=== PATIENT | male | born 1965 | race Caucasian/White ===

== ENCOUNTER 2017-04-08 18:41 | Inpatient (IN) | payer OTHER, MEDICARE ==
--- NOTE | 2017-04-08 19:30 | ER Document Report ---
ED Medical Screen (RME) - General Chief Complaint: Breathing Difficulty Stated Complaint: SHORTNESS OF BREATH Time Seen by Provider: 04/08/17 19:14 Mode of Arrival: Wheelchair Information source: Patient Notes: This is a 51-year-old male with a recent diagnosis of pneumonia (1 week ago) he reports compliance with his Zithromax and Augmentin who presents with shortness of breath today. He states that this morning at about 0830 while he was pulling his cart of fishing gear, he had dyspnea on exertion. He has been short of breath since. He denies any chest pain. He does have bilateral lower extremity edema which is worse than usual for him today. He denies any fevers or chills. His primary care physician is in [place] I have greeted and performed a rapid initial assessment of this patient. A comprehensive ED assessment and evaluation of the patient, analysis of test results and completion of the medical decision making process will be conducted by additional ED providers. TRAVEL OUTSIDE OF THE [place] IN LAST 30 DAYS: No - Related Data Allergies/Adverse Reactions: aripiprazole Allergy (Verified 04/08/17 18:45) carbidopa Allergy (Verified 04/08/17 18:45) desvenlafaxine [From Pristiq] Allergy (Verified 04/08/17 18:45) enoxaparin Allergy (Verified 04/08/17 18:45) iron Allergy (Verified 04/08/17 18:45) prednisone Allergy (Verified 04/08/17 18:45) tree nut Allergy (Verified 04/08/17 18:45) valsartan Allergy (Verified 04/08/17 18:45) NEUROMUSCULAR BLOCKERS, STEROIDAL Allergy (Uncoded 04/08/17 18:45) Past Medical History - Social History Chew tobacco use (# tins/day): No Frequency of alcohol use: None Drug Abuse: None - Past Medical History Cardiac Medical History: Reports: Hx Hypercholesterolemia, Hx Hypertension Renal/ Medical History: Denies: Hx Peritoneal Dialysis GI Medical History: Reports: Hx Gastroesophageal Reflux Disease Psychiatric Medical History: Reports: Hx Bipolar Disorder - ptsd, Hx Depression - anxiety Past Surgical History: Reports: Hx Cholecystectomy, Hx Orthopedic Surgery - bilateral should & wrist, Hx Tonsillectomy - Immunizations Hx Diphtheria, Pertussis, Tetanus Vaccination: Yes Physical Exam - Vital signs Vitals: Temp Pulse Resp BP Pulse Ox 98.3 F 90 20 138/82 H 97 04/08/17 18:45 04/08/17 18:45 04/08/17 18:45 04/08/17 18:45 04/08/17 18:45 - General General appearance: Appears well In distress: None Course - Vital Signs Vital signs: Temp Pulse Resp BP Pulse Ox 98.3 F 90 15 138/82 H 97 04/08/17 18:45 04/08/17 18:45 04/08/17 19:08 04/08/17 18:45 04/08/17 18:45
--- NOTE | 2017-04-08 20:14 | ER Document Report ---
ED General - General Mode of Arrival: Wheelchair TRAVEL OUTSIDE OF THE [place] IN LAST 30 DAYS: No <MICHAEL COPELAND - Last Filed: 04/09/17 05:49> <KERRY ALCALA - Last Filed: 04/18/17 09:20> - General Chief Complaint: Breathing Difficulty Stated Complaint: SHORTNESS OF BREATH Time Seen by Provider: 04/08/17 19:14 Notes: Patient is a 51-year-old male that comes emergency department for chief complaint of shortness of breath and weakness. He states that symptoms started earlier today while he was pulling a cart and since that time he feels like he cannot completely catch his breath and it is worse with exertion. He does have bilateral lower extremity swelling but this is normal for him, he takes Lasix for this, he denies history of CHF. He was diagnosed with pneumonia 1 week ago , he has been compliant with his azithromycin. Past medical history of hypertension, hyperlipidemia, migraines, denies smoking, denies hx of [place]. He is visiting here from [place], about a 3-1/[address], he denies history of blood clot. (MICHAEL COPELAND) - Related Data Allergies/Adverse Reactions: aripiprazole Allergy (Verified 04/08/17 18:45) carbidopa Allergy (Verified 04/08/17 18:45) desvenlafaxine [From Pristiq] Allergy (Verified 04/08/17 18:45) enoxaparin Allergy (Verified 04/09/17 01:36) iron Allergy (Verified 04/08/17 18:45) tree nut Allergy (Verified 04/08/17 18:45) valsartan Allergy (Verified 04/08/17 18:45) prednisone Adverse Reaction (Verified 04/09/17 01:36) Confusion NEUROMUSCULAR BLOCKERS, STEROIDAL Allergy (Uncoded 04/08/17 18:45) Past Medical History - General Information source: Patient - Social History Smoking Status: Never Smoker Chew tobacco use (# tins/day): No Frequency of alcohol use: None Drug Abuse: None Lives with: Family Family History: Reviewed & Not Pertinent Patient has suicidal ideation: No Patient has homicidal ideation: No - Past Medical History Cardiac Medical History: Reports: Hx Hypercholesterolemia, Hx Hypertension Renal/ Medical History: Denies: Hx Peritoneal Dialysis GI Medical History: Reports: Hx Gastroesophageal Reflux Disease Psychiatric Medical History: Reports: Hx Bipolar Disorder - ptsd, Hx Depression - anxiety Past Surgical History: Reports: Hx Cholecystectomy, Hx Orthopedic Surgery - bilateral should & wrist, Hx Tonsillectomy - Immunizations Hx Diphtheria, Pertussis, Tetanus Vaccination: Yes <MICHAEL COPELAND - Last Filed: 04/09/17 05:49> Review of Systems - Review of Systems Constitutional: No symptoms reported EENT: No symptoms reported Cardiovascular: See HPI Respiratory: See HPI Gastrointestinal: No symptoms reported Genitourinary: No symptoms reported Male Genitourinary: No symptoms reported Musculoskeletal: No symptoms reported Skin: No symptoms reported Hematologic/Lymphatic: No symptoms reported Neurological/Psychological: No symptoms reported <MICHAEL COPELAND - Last Filed: 04/09/17 05:49> Physical Exam - Vital signs Interpretation: Normal - General General appearance: Alert In distress: None - Appears to be mildly uncomfortable but he does not appear to be in distress - HEENT Head: Normocephalic, Atraumatic Eyes: Normal Pupils: PERRL - Respiratory Respiratory status: No respiratory distress. No: Tachypnea Chest status: Nontender Breath sounds: Normal. No: Decreased air movement, Nonproductive cough, Wheezing, Other Chest palpation: Normal - Cardiovascular Rhythm: Regular. No: Tachycardia Heart sounds: Normal auscultation, S1 appreciated, S2 appreciated Murmur: No - Abdominal Inspection: Normal Distension: No distension Bowel sounds: Normal Tenderness: Nontender. No: Tender Organomegaly: No organomegaly - Back Back: Normal, Nontender - Extremities General upper extremity: Normal inspection, Nontender, Normal color, Normal ROM , Normal temperature General lower extremity: Other - Normal bilateral lower extremity edema, about 1 + bilaterally, normal distal neurovascular exam, normal exam of the lower extremities otherwise. No: Vince's sign - Neurological Neuro grossly intact: Yes Cognition: Normal Orientation: AAOx4 Yung Coma Scale Eye Opening: Spontaneous [place] Coma Scale Verbal: Oriented Yung Coma Scale Motor: Obeys Commands Yung Coma Scale Total: 15 Speech: Normal Motor strength normal: LUE, RUE, LLE, RLE Sensory: Normal - Psychological Associated symptoms: Normal affect, Normal mood - Skin Skin Temperature: Warm Skin Moisture: Dry Skin Color: Normal <MICHAEL COPELAND Last Filed: 04/09/17 05:49> Course - Laboratory Result Diagrams: 04/08/17 20:10 04/08/17 20:10 <MICHAEL COPELAND - Last Filed: 04/09/17 05:49> - Laboratory Result Diagrams: 04/08/17 20:10 04/08/17 20:10 <KERRY ALCALA - Last Filed: 04/18/17 09:20> - Re-evaluation Re-evalutation: EKG shows right bundle branch block, sinus rhythm, no T-wave inversions or ST segment changes in consecutive leads. No comparison EKG. Unremarkable. Very mild leukocytosis at 12.1, no fever, no tachycardia. When patient is placed down the lying flat his heart rate elevates and he becomes hypoxic. Room air patient averages 93-94%, placed on 2 L nasal cannula. Chart unremarkable, troponin is elevated at 0.8, patient is not having any chest pain. Patient with ongoing shortness of breath which he expresses to me, he does not appear to be in respiratory distress or tachypnea. Return because of elevated troponin, ongoing shortness of breath, and patient also has a family history of blood clots even though he has never had them personally. CTA performed, shows extensive pulmonary emboli. States she is allergic to Lovenox, he is unsure of the allergic response, family also unsure. Discussed with Dr. Alcala. Consultation with hematology. Discussed with hematology, Dr. Munoz, patient's uncertain allergy with Lovenox , discussed patient presentation, exam, and testing/workup. Recommends patient be treated with heparin instead, likely for several days before transition to oral medication. 04/08/[address] Eden, internal medicine, patient will be admitted to the IMCU (MICHAEL COPELAND) - Vital Signs Vital signs: Temp Pulse Resp BP Pulse Ox 98.3 F 91 21 H 148/80 H 99 04/10/17 08:21 04/10/17 08:21 04/10/17 08:21 04/10/17 08:21 04/10/17 08:21 - Laboratory Laboratory results interpreted by me: 04/08/17 04/08/17 04/08/17 20:10 20:10 20:10 WBC 12.8 H RBC 5.59 H MCV 79 L MCH 25.6 L RDW 14.7 H Absolute Neutrophils 8.8 H Sodium 136.2 L Alkaline Phosphatase 140 H Creatine Kinase 354 H CK-MB (CK-2) 7.30 H Urine Ascorbic Acid 04/08/17 04/09/17 04/09/17 20:10 00:40 00:40 WBC RBC MCV MCH RDW Absolute Neutrophils Sodium Alkaline Phosphatase Creatine Kinase 288 H CK-MB (CK-2) 7.36 H Urine Ascorbic Acid 40 H Discharge - Discharge Admitting Provider: Hospitalist Unit Admitted: IMCU <MICHAEL COPELAND - Last Filed: 04/09/17 05:49> <KERRY ALCALA - Last Filed: 04/18/17 09:20> - Discharge Clinical Impression: Shortness of breath, Hypoxia Pulmonary embolism Qualifiers: Pulmonary embolism type: other Chronicity: acute Acute cor pulmonale presence: without acute cor pulmonale Qualified Code(s): I26.99 - Other pulmonary embolism without acute cor pulmonale Condition: Stable Disposition: ADMITTED INPATIENT
[2017-04-08 20:33] LABS: ABSOLUTE EOSINOPHILS # (AUTO) 0.3 10^3/uL (0.0-0.6); ABSOLUTE LYMPHOCYTES (AUTO) 2.4 10^3/uL (0.5-4.7); ABSOLUTE MONOCYTES (AUTO) 1.3 10^3/uL (0.1-1.4); ABSOLUTE NEUT (AUTO) 8.8 10^3/uL (1.7-8.2); BASOPHILS % (AUTO) 0.4 % (0-2); EOSINOPHILS % (AUTO) 2.2 % (0-6); HEMATOCRIT 44.4 % (37.9-51.0); HEMOGLOBIN 14.3 g/dL (13.5-17.0); HGB HCT DIFFERENCE -1.5; LYMPHOCYTES % (AUTO) 18.3 % (13-45); MEAN CORPUSCULAR HEMOGLOBIN 25.6 pg (27.0-33.4); MEAN CORPUSCULAR HGB CONC 32.3 g/dL (32.0-36.0); MEAN CORPUSCULAR VOLUME 79 fl (80-97); MONOCYTES % (AUTO) 10.3 % (3-13); RED BLOOD COUNT 5.59 10^6/uL (4.35-5.55); RED CELL DISTRIBUTION WIDTH 14.7 % (11.5-14.0); SEGMENTED NEUTROPHILS % (AUTO) 68.8 % (42-78); WHITE BLOOD COUNT 12.8 10^3/uL (4.0-10.5)
--- NOTE | 2017-04-08 20:43 | RADIOLOGY REPORT (SQ) ---
EXAM DESCRIPTION: CHEST PA/LAT COMPLETED DATE/TIME: 04/08/2017 8:32 pm REASON FOR STUDY: SOB, hypoxia COMPARISON: None. EXAM PARAMETERS: NUMBER OF VIEWS: two views TECHNIQUE: Digital Frontal and Lateral radiographic views of the chest acquired. RADIATION DOSE: NA LIMITATIONS: none FINDINGS: LUNGS AND PLEURA: No opacities, masses or pneumothorax. No pleural effusion. MEDIASTINUM AND HILAR STRUCTURES: No masses or contour abnormalities. HEART AND VASCULAR STRUCTURES: Heart normal size. No evidence for failure. BONES: No acute findings. HARDWARE: None in the chest. OTHER: No other significant finding. IMPRESSION: NO SIGNIFICANT RADIOGRAPHIC FINDING IN THE CHEST. TECHNICAL DOCUMENTATION: JOB ID: [id number] [employer] All Rights Reserved
[2017-04-08 20:45] LABS: APPEARANCE,URINE CLEAR; BILIRUBIN,URINE NEGATIVE (NEGATIVE); GLUCOSE, URINE NEGATIVE (NEGATIVE); KETONES,URINE NEGATIVE (NEGATIVE); LEUKOCYTE ESTERASE,URINE NEGATIVE (NEGATIVE); NITRITE,URINE NEGATIVE (NEGATIVE); PROTEIN,URINE NEGATIVE (NEGATIVE); URINE SPECIFIC GRAVITY 1.016; UROBILINOGEN,URINE NEGATIVE mg/dL (<2.0)
[2017-04-08 20:51] LABS: ALANINE AMINOTRANSFERASE 69 U/L (21-72); ALKALINE PHOSPHATASE 140 U/L (38-126); ANION GAP 10 (5-19); ASPARTATE AMINO TRANSFERASE 48 U/L (17-59); BILIRUBIN,DIRECT 0.3 mg/dL (0.0-0.4); BILIRUBIN,TOTAL 0.4 mg/dL (0.2-1.3); BLOOD UREA NITROGEN 16 mg/dL (7-20); CALCIUM 9.2 mg/dL (8.4-10.2); CARBON DIOXIDE 24 mmol/L (22-30); CHLORIDE 102 mmol/L (98-107); CREATINE KINASE 354 U/L (55-170); CREATININE RESULT 0.79 mg/dL (0.52-1.25); GLUCOSE 98 mg/dL (75-110); POTASSIUM 4.3 mmol/L (3.6-5.0); SODIUM 136.2 mmol/L (137-145); TOTAL PROTEIN 6.9 g/dL (6.3-8.2)
[2017-04-08 21:03] LABS: CREATINE KINASE MB 7.3 ng/mL (<4.55)
[2017-04-08 21:14] LABS: TROPONIN I 0.872 ng/mL
[2017-04-08] MEDS ORDERED: ASPIRIN 81 MG TABLET, CHEWABLE PO ONE (21:17)
--- NOTE | 2017-04-08 22:05 | RADIOLOGY REPORT (SQ) ---
EXAM DESCRIPTION: CTA CHEST COMPLETED DATE/TIME: 04/08/2017 9:50 pm REASON FOR STUDY: shortness of breath, elevated troponin COMPARISON: None. TECHNIQUE: CT scan of the chest performed using helical scanning technique with dynamic intravenous contrast injection. Images reviewed with lung, soft tissue and bone windows. Reconstructed coronal and sagittal MPR images reviewed. Additional 3 dimensional post-processing performed to develop Maximal Intensity Projection images (CA P). All images stored on PACS. All CT scanners at this facility use dose modulation, iterative reconstruction, and/or weight based d osing when appropriate to reduce radiation dose to as low as reasonably achievable (ALARA). [facility]: Dose Right [facility]: CareDose [facility]: Dose Right [facility]: Teradose 4D [facility]: Taptera CONTRAST TYPE AND DOSE: contrast/concentration: Isovue 370.00 mg/ml; Total Contrast Delivered: 86.0 ml; Total Saline Delivered: 100.1 ml 86 Isovue 370- low osmolar. RENAL FUNCTION: Creatinine 0.79 RADIATION DOSE: 86.10 . LIMITATIONS: None. FINDINGS: LUNGS AND PLEURA: No masses, infiltrates, pneumothorax. No pleural effusions, calcificati ons. AORTA AND GREAT VESSELS: No aneurysm or dissection. HEART: No pericardial effusion. PULMONARY ARTERIES: There is extensive pulmonary embolic disease involving the main pulmonary branche s as well as multiple upper and lower lobe pulmonary arteries bilaterally. HILAR AND MEDIASTINAL STRUCTURES: No identified masses or abnormal nodes. HARDWARE: None in the chest. UPPER ABDOMEN: No significant findings. Limited exam. THYROID AND OTHER SOFT TISSUES: No masses. No adenopathy. BONES: No acute or significant finding. 3D MIPS: Confirm above findings. OTHER: No other significant finding. IMPRESSION: Extensive bilateral pulmonary embolic disease is noted above. No acute consolidations o r pleural effusions are identified. Other findings as noted above TECHNICAL DOCUMENTATION: JOB ID: [id number] Quality ID # [id number]: Final reports with documentation of one or more dose reduction techniques (e.g., Au tomated exposure control, adjustment of the mA and/or kV according to patient size, use of iterative reconstruction technique) 2010 [employer]- All Rights Reserved
--- NOTE | 2017-04-08 22:36 | EKG REPORT ---
SEVERITY:- ABNORMAL ECG - SINUS RHYTHM RIGHT BUNDLE BRANCH BLOCK : Confirmed by: Shannen Acharya 08-Apr-2017 22:35:39
[2017-04-08 22:43] LABS: PROTHROMBIN TIME 12.5 SEC (11.4-15.4)
[2017-04-08 22:44] LABS: PARTIAL THROMBOPLASTIN TIME 30.6 SEC (23.5-35.8)
[2017-04-08] MEDS ORDERED: HEPARIN SOD (PORCINE) 1,000 UNIT/ML 10 ML VIAL IV ONE (22:58)
[2017-04-08] MEDS ORDERED: HEPARIN SODIUM,PORCINE/D5W 250 ML IV PRN (22:58)
[2017-04-08] MEDS ORDERED: HEPARIN SOD (PORCINE) 1,000 UNIT/ML 10 ML VIAL IV PRN (22:58)
[2017-04-09 01:10] LABS: CREATINE KINASE MB 7.36 ng/mL (<4.55); TROPONIN I 0.764 ng/mL
[2017-04-09] MEDS ORDERED: HEPARIN SODIUM,PORCINE/D5W 250 ML IV PRN (01:33)
[2017-04-09] MEDS ORDERED: HEPARIN SOD (PORCINE) 1,000 UNIT/ML 10 ML VIAL IV PRN (01:33)
[2017-04-09] MEDS ORDERED: MAGNESIUM HYDROXIDE SUSP 30 ML UDCUP PO PRN (01:46)
[2017-04-09] MEDS ORDERED: ACETAMINOPHEN 325 MG TABLET PO PRN (01:46)
--- NOTE | 2017-04-09 02:09 | PDOC H&P ---
History of Present Illness Admission Date/PCP: 04/08/17 23:58 PCP LIMA Mackay Patient complains of: SOB, weak History of Present Illness: WILFRED DIGGS is a 51 year old morbidly obese male with underlying hypertension, hyperlipidemia, bipolar disorder, and with a family history, in the person of his mother, of pulmonary embolism and DVT, who presents to the emergency room for evaluation of above complaints. Patient has been discussed with emergency room nurse practitioner who evaluated the patient. Describes a less than 24 hour history of generalized weakness and shortness of breath, with shortness of breath particularly noticeable with virtually any exertion. Has chronic bilateral lower extremity swelling, nothing out of the ordinary for him, and without recent change, for which he takes Lasix. No recent immobility. No previous OH or congestive heart failure, or prior pulmonary embolus or DVT. Was placed on Augmentin and Zithromax approximately a week ago for what describes his x-ray proven pneumonia, at an urgent care center. He has had nausea but no vomiting. No chest pain, fever or chills. Has remained hemodynamically stable. No hypoxia, with patient currently on 1 L oxygen per nasal cannula. Currently resting quietly, without pain. History 5 years ago of endoscopic proven peptic ulcer disease. Has not bothered him since then. Laboratory results are listed in [facility] and are reviewed. X-ray summary results are listed below, with full report(s) reviewed. . EKG reviewed. No old EKG available for comparison Social history/personal habits: . Has children. Retired. No use of alcohol tobacco or illicit drugs. Allergies/adverse reactions are listed in [facility] and are reviewed. Uncertain reaction to Lovenox. Of note, prior to my being called, the evaluating ER nurse practitioner did speak by phone with on-call body line finisher, Dr. Hong. She agreed that patient could be treated by heparin drip. He has had no problem since the start of the drip. Home medications initially autopopulated into [facility] may not accurately reflect patient's true medications, dosages, and/or frequencies. production technologist to reconcile medications. Unfortunately, patient not certain of all medications/dosages/frequencies. REVIEW OF SYSTEMS: Constitutional: See history and present illness. Eyes: Wears glasses. ENT: No swallowing problems or complaints. Partial hearing loss. Pulmonary: See history and present illness. Cardiovascular: No current complaints, including chest pain. Gastrointestinal: See history and present illness. Skin: No current complaints, including rashes. Hematologic: Denies easy bruising. Neurologic: No current complaints, including numbness or tingling. Musculoskeletal: No current or chronic joint complaints, such as arthritis. Psychiatric: Denies anxiety or depression. Endocrine: No current complaints, including polyuria. Genitourinary: No current complaints, including dysuria. PHYSICAL EXAMINATION: 5 feet 11 inches tall. 139.3 kg. BMI 42.8 kg/m. Blood pressure 103/79. Pulse 79 and regular. 97% saturation 1 L oxygen per nasal cannula. Respirations are 14 and unlabored. Temperature 98.3. Morbidly obese otherwise well-developed male appearing approximately his stated age. Pleasant awake alert and cooperative. No obvious distress other than perhaps mildly anxious. No agitation. A rather stoic individual. and daughter are present at his side; patient approves. Skin is warm and dry. No grossly obvious evidence of rash in areas of skin examined. No subcutaneous nodules palpated. ENT: Hearing grossly normal to normal conversation. Tongue midline on protrusion pink and slightly tacky. Eyes: No scleral icterus. Pupils equal and reactive to light at 4 mm. Kevin conjunctivae. Neck is supple and nontender to gentle active range of motion and palpation. Midline trachea. No palpable thyroid nodule mass enlargement or tenderness. Lymphatic: No palpable cervical or clavicular nodes. Neck and lymphatic exams limited by patient body habitus. Psychiatric: Reasonable insight into acute and chronic medical issues. Oriented to time location and why here. Lungs: Auscultation reveals clear and equal breath sounds bilaterally. No use of accessory respiratory muscles. Cardiovascular: Heart regular rate and rhythm, without gallop murmur or rub. No carotid or abdominal aortic bruits. Very mild bilateral symmetric barely pitting calf, ankle, and pedal edema. Abdomen:soft obese nontender with positive bowel sounds. Unable to adequately evaluate abdomen for masses or organomegaly due to body habitus. Extremities: No calf tenderness to compression. Gentle manipulation of lower extremities fails to reveal any obvious evidence of injury or instability to knees hips or ankles. Neurologic: Moves upper extremities grossly normally. Patellar reflexes absent. Dorsiflexion and plantarflexion of feet 5 / 5 and symmetric. Past Medical History Cardiac Medical History: Reports: Hyperlipidema, Hypertension Denies: Congestive Heart Failure, DVT, Myocardial Infarction, Pulmonary Embolism Pulmonary Medical History: Denies: Asthma, Chronic Obstructive Pulmonary Disease (COPD), Sleep Apnea EENT Medical History: Reports: Eyes - Wears glasses, Ears - Partial hearing loss Denies: Throat Neurological Medical History: Reports: Migraine Denies: Hemorrhagic CVA, Ischemic CVA, Seizures Endocrine Medical History: Denies: Diabetes Mellitus Type 1, Diabetes Mellitus Type 2, Hyperthyroidism, Hypothyroidism Renal/ Medical History: Reports: Nephrolithiasis - History of same, Other - "Overactive bladder" GI Medical History: Reports: Gastroesophageal Reflux Disease, Peptic Ulcer Disease - History 5 years ago by upper endoscopy; no problems since then. Denies: Cirrhosis, Hepatitis Musculoskeltal Medical History: Reports: Arthritis Skin Medical History: Reports: None Psychiatric Medical History: Reports: Bipolar Disorder, Post Traumatic Stress Disorder Denies: Alcohol Dependency, Depression, General Anxiety Disorder, Substance Abuse, Tobacco Dependency Hematology: Reports: Other Infectious Medical History: Denies: Clostridium Difficile, Hepatitis B, Hepatitis C, Methicillin- Resistant Staph Aureus Past Surgical History Past Surgical History: Reports: Cholecystectomy, Orthopedic Surgery - bilateral should & wrist, Tonsillectomy Social History Information Source: Patient, Relative - , Emergency Med Personnel, [facility] Records Lives with: Spouse/Significant other Smoking Status: Never Smoker Frequency of Alcohol Use: None Drugs: None - Advance Directive Resuscitation Status: Full Code Surrogate healthcare decision maker:: Family History Parental Family History Reviewed: Yes - Father of cancer. Mother of Alzheimer's and COPD; history of PE, DVT Children Family History Reviewed: Yes - ADHD Sibling(s) Family History Reviewed.: NA Medication/Allergy Home Medications: Acamprosate Calcium 333 mg PO TID 04/09/17 Acetaminophen [Tylenol Arthritis 650 mg Tablet] 1,300 mg PO BIDP PRN 04/09/17 Armodafinil [Nuvigil] 250 mg PO DAILY 04/09/17 Aspirin/Acetaminophen/Caffeine [Excedrin Migraine Caplet] 1 each PO DAILYP PRN 04/09/17 Clonazepam [Klonopin 2 mg Tablet] 2 mg PO Q8 04/09/17 Colestipol HCl [Colestid 1 gm Tablet] 2 gm PO BID 04/09/17 Dicyclomine HCl [Bentyl 20 mg Tablet] 20 mg PO TIDP PRN 04/09/17 Duloxetine HCl [Cymbalta] 60 mg PO BID 04/09/17 Esomeprazole Magnesium [Nexium] 40 mg PO QAM 04/09/17 Fluoxetine HCl [Prozac 20 mg Capsule] 20 mg PO DAILY 04/09/17 Furosemide [Lasix 20 mg Tablet] 20 mg PO QAM 04/09/17 L. Rhamnosus GG/Inulin [Culturelle Capsule] 1 each PO DAILY 04/09/17 Lisinopril/Hydrochlorothiazide [Lisinopril-Hctz 20-12.5 mg Tab] 1 each PO DAILY 04/09/17 Loxapine Succinate [Loxapine] 10 mg PO BID 04/09/17 Metoprolol Succinate [Toprol Xl 50 mg Tab.sr] 50 mg PO DAILY 04/09/17 Simvastatin [Zocor 20 mg Tablet] 20 mg PO QHS 04/09/17 Tolterodine Tartrate [Detrol LA] 4 mg PO DAILY 04/09/17 Topiramate [Topamax] 50 mg PO DAILY 04/09/17 Apixaban [Eliquis 5 mg Tablet] 5 mg PO BID #60 tablet 04/10/17 Apixaban [Eliquis 5 mg Tablet] 10 mg PO Q12 #14 tablet 04/10/17 Allergies/Adverse Reactions: aripiprazole Allergy (Verified 04/08/17 18:45) carbidopa Allergy (Verified 04/08/17 18:45) desvenlafaxine [From Pristiq] Allergy (Verified 04/08/17 18:45) enoxaparin Allergy (Verified 04/09/17 01:36) iron Allergy (Verified 04/08/17 18:45) tree nut Allergy (Verified 04/08/17 18:45) valsartan Allergy (Verified 04/08/17 18:45) prednisone Adverse Reaction (Verified 04/09/17 01:36) Confusion NEUROMUSCULAR BLOCKERS, STEROIDAL Allergy (Uncoded 04/08/17 18:45) Physical Exam Vital Signs: Temp Pulse Resp BP Pulse Ox 98.3 F 90 12 115/74 97 04/08/17 18:45 04/08/17 18:45 04/09/17 01:21 04/09/17 01:21 04/09/17 01:21 Results Laboratory Results: 04/09/17 00:40 Magnesium 2.0 04/09/17 04/09/17 00:40 00:40 Creatine Kinase 288 H CK-MB (CK-2) 7.36 H Troponin I 0.764 Impressions: Chest X-Ray 04/08/17 19:27 IMPRESSION: NO SIGNIFICANT RADIOGRAPHIC FINDING IN THE CHEST. Chest/Abdomen CTA 04/08/17 21:19 IMPRESSION: Extensive bilateral pulmonary embolic disease is noted above. No acute consolidations or pleural effusions are identified. Other findings as noted above Assessment & Plan - Diagnosis (1) Anticoagulated Is this a current diagnosis for this admission?: YesPlan: Systemic anticoagulation recommended to patient. Patient and understand the risks of systemic anti-coagulation to include but not be limited to internal bleeding, which can take the form of GI tract and/or intracranial hemorrhage, the latter of which can result in or stroke with permanent paralysis. Patient has no absolute contraindication to systemic anticoagulation. Above discussed in lay person's terms. Patient agrees to undergo systemic anticoagulation. (2) Elevated troponin Is this a current diagnosis for this admission?: YesPlan: Likely secondary to the extensive pulmonary emboli. Will repeat. (3) Pulmonary embolism Qualifiers: Pulmonary embolism type: other Chronicity: acute Acute cor pulmonale presence: without acute cor pulmonale Qualified Code(s): I26.99 - Other pulmonary embolism without acute cor pulmonale Is this a current diagnosis for this admission?: YesPlan: I have strongly encouraged patient not to get out of bed without notifying staff , to avoid a fall with injury. Bed rest with bedside toilet. Heparin drip protocol. Hematology consult. Lower extremity venous Doppler study. Knee high SCDs for DVT prophylaxis. Impression and plans were discussed with patient and , both of whom concur. Time spent in evaluation and management of patient: 64 minutes. (4) Family history of pulmonary embolism Is this a current diagnosis for this admission?: Yes (5) Bipolar disorder Qualifiers: Active/Remission status: remission status unspecified Qualified Code (s): F31.9 - Bipolar disorder, unspecified Is this a current diagnosis for this admission?: YesPlan: Resume home medications as appropriate once these have been determined and reviewed. (6) HTN (hypertension) Qualifiers: Hypertension type: essential hypertension Qualified Code(s): I10 - Essential (primary) hypertension Is this a current diagnosis for this admission?: YesPlan: Resume home medications as appropriate once these have been determined and reviewed. - Inpatient Certification Based on my medical assessment, after consideration of the patient's comorbidities, presenting symptoms, or acuity I expect that the services needed warrant INPATIENT care.: Yes I certify that my determination is in accordance with my understanding of Medicare's requirements for reasonable and necessary INPATIENT services [42 CFR 412.3e].: Yes Medical Necessity: Need Close Monitoring Due to Risk of Patient Decompensation, Need For IV Fluids, Need For Continuous Telemetry Monitoring, Risk of Complication if Not Cared For in Hospital Post Hospital Care: D/C or Transfer Summary
--- NOTE | 2017-04-09 11:13 | EKG REPORT ---
SEVERITY:- ABNORMAL ECG - SINUS RHYTHM PROBABLE LEFT ATRIAL ABNORMALITY RIGHT BUNDLE BRANCH BLOCK : Confirmed by: Shannen Acharya 09-Apr-2017 11:11:19
[2017-04-09] MEDS ORDERED: APIXABAN 5 MG TABLET PO ONE (11:30)
[2017-04-09] MEDS: DOCUSATE SODIUM 100 MG CAPSULE PO SCH ×2 (11:35→17:42)
--- NOTE | 2017-04-09 11:46 | PDOC PROGRESS REPORT ---
Subjective Progress Note for:: 04/09/17 Subjective:: reason for f/u visit: massive PE, abnl TpIs hospital course: "WILFRED DIGGS is a 51 year old morbidly obese male with underlying hypertension, hyperlipidemia, bipolar disorder, and with a family history and the person of his mother, of pulmonary embolism and DVT, who presents to the emergency room for evaluation of above complaints. Describes a (sudden onset) less than 24 hour history of generalized weakness and shortness of breath, with shortness of breath particularly noticeable with virtually any exertion. Has chronic bilateral lower extremity swelling, nothing out of the ordinary for him, and without recent change, for which he takes Lasix. No recent immobility. No previous CT or congestive heart failure, or prior pulmonary embolus or DVT. (no recent travel; takes testosterone injections for some months now) Was placed on Augmentin and Zithromax approximately a week ago for what describes his x-ray proven pneumonia, at an urgent care center. He has had nausea but no vomiting. No chest pain, fever or chills. Has remained hemodynamically stable. No hypoxia, with patient currently on 1 L oxygen per nasal cannula. Currently resting quietly, without pain. History 5 years ago of endoscopic proven peptic ulcer disease. Has not bothered him since then." I found him sitting upright in bed with family around him in no distress and no O2 required with good hemodynamics. He denies chest pain, palpitations, cough, hemoptysis, and leg swelling. still SOA with minimal exertion, unchanged ROS: all systems reviewed, see HPI, remaining systems negative Physical Exam Vital Signs: Temp Pulse Resp BP Pulse Ox 97.8 F 86 18 117/73 97 04/09/17 07:57 04/09/17 07:57 04/09/17 07:57 04/09/17 07:57 04/09/17 07:57 Intake & Output 04/08/17 04/09/17 04/10/17 06:59 06:59 06:59 Intake Total 120 Output Total 300 Balance -180 Weight 135.4 kg General appearance: PRESENT: no acute distress, obese, well-developed, well- nourished Head exam: PRESENT: atraumatic, normocephalic Eye exam: ABSENT: conjunctival injection, scleral icterus Neck exam: PRESENT: full ROM. ABSENT: tracheal deviation Respiratory exam: PRESENT: clear to auscultation chadd. ABSENT: accessory muscle use, rhonchi, wheezes Cardiovascular exam: PRESENT: RRR. ABSENT: systolic murmur Pulses: PRESENT: normal radial pulses, normal dorsalis pedis pul GI/Abdominal exam: PRESENT: normal bowel sounds, soft. ABSENT: tenderness Extremities exam: PRESENT: other - asymmetric nonpitting edema Rt leg easily 2cm larger then the left at 10cm distal to tibial plateau Musculoskeletal exam: PRESENT: ambulatory, full ROM Neurological exam: PRESENT: alert, awake, oriented to person, oriented to place , oriented to time, oriented to situation Psychiatric exam: PRESENT: appropriate affect, normal mood Skin exam: PRESENT: warm Results Laboratory Results: 04/08/17 20:10 04/08/17 20:10 MCV 79 fl (80-97) L 04/08/17 20:10 MCH 25.6 pg (27.0-33.4) L 04/08/17 20:10 MCHC 32.3 g/dL (32.0-36.0) 04/08/17 20:10 RDW 14.7 % (11.5-14.0) H 04/08/17 20:10 Seg Neutrophils % 68.8 % (42-78) 04/08/17 20:10 Lymphocytes % 18.3 % (13-45) 04/08/17 20:10 Monocytes % 10.3 % (3-13) 04/08/17 20:10 Eosinophils % 2.2 % (0-6) 04/08/17 20:10 Basophils % 0.4 % (0-2) 04/08/17 20:10 Absolute Neutrophils 8.8 10^3/uL (1.7-8.2) H 04/08/17 20:10 Absolute Lymphocytes 2.4 10^3/uL (0.5-4.7) 04/08/17 20:10 Absolute Monocytes 1.3 10^3/uL (0.1-1.4) 04/08/17 20:10 Absolute Eosinophils 0.3 10^3/uL (0.0-0.6) 04/08/17 20:10 Absolute Basophils 0.0 10^3/uL (0.0-0.2) 04/08/17 20:10 Chloride 102 mmol/L (98-107) 04/08/17 20:10 Carbon Dioxide 24 mmol/L (22-30) 04/08/17 20:10 Anion Gap 10 (5-19) 04/08/17 20:10 Est GFR ( Amer) > 60 (>60) 04/08/17 20:10 Est GFR (Non-Af Amer) > 60 (>60) 04/08/17 20:10 Glucose 98 mg/dL (75-110) 04/08/17 20:10 Calcium 9.2 mg/dL (8.4-10.2) 04/08/17 20:10 Magnesium 2.0 mg/dL (1.6-2.3) 04/09/17 00:40 Total Bilirubin 0.4 mg/dL (0.2-1.3) 04/08/17 20:10 AST 48 U/L (17-59) 04/08/17 20:10 ALT 69 U/L (21-72) 04/08/17 20:10 Alkaline Phosphatase 140 U/L (38-126) H 04/08/17 20:10 Total Protein 6.9 g/dL (6.3-8.2) 04/08/17 20:10 Albumin 4.0 g/dL (3.5-5.0) 04/08/17 20:10 Urine Color YELLOW 04/08/17 20:10 Urine Appearance CLEAR 04/08/17 20:10 Urine pH 5.0 (5.0-9.0) 04/08/17 20:10 Ur Specific [place] 1.016 04/08/17 20:10 Urine Protein NEGATIVE mg/dL (NEGATIVE) 04/08/17 20:10 Urine Glucose (UA) NEGATIVE mg/dL (NEGATIVE) 04/08/17 20:10 Urine Ketones NEGATIVE mg/dL (NEGATIVE) 04/08/17 20:10 Urine Blood NEGATIVE (NEGATIVE) 04/08/17 20:10 Urine Nitrite NEGATIVE (NEGATIVE) 04/08/17 20:10 Ur Leukocyte Esterase NEGATIVE (NEGATIVE) 04/08/17 20:10 Urine WBC (Auto) 1 /HPF 04/08/17 20:10 04/08/17 04/08/17 04/09/17 20:10 20:10 00:40 Creatine Kinase 354 H 288 H CK-MB (CK-2) 7.30 H Troponin I 0.872 NT-Pro-B Natriuret Pep 564 04/09/17 00:40 Creatine Kinase CK-MB (CK-2) 7.36 H Troponin I 0.764 NT-Pro-B Natriuret Pep Impressions: Chest X-Ray 04/08/17 19:27 IMPRESSION: NO SIGNIFICANT RADIOGRAPHIC FINDING IN THE CHEST. Chest/Abdomen CTA 04/08/17 21:19 IMPRESSION: Extensive bilateral pulmonary embolic disease is noted above. No acute consolidations or pleural effusions are identified. Other findings as noted above Status: Image reviewed by me - agree with rads Assessment & Plan - Diagnosis (1) Pulmonary embolism Qualifiers: Pulmonary embolism type: other Chronicity: acute Acute cor pulmonale presence: without acute cor pulmonale Qualified Code(s): I26.99 - Other pulmonary embolism without acute cor pulmonale Is this a current diagnosis for this admission?: YesPlan: stable; I spent 35 minutes at the bedside with pt and family describing his condition, lab and imaging findings and treatment plans. He has elected to change to eliquis; stop heparin. send hypercoag profile. will need minimum 3months of treatment and repeat labs at that time. hold testosterone injections indefinitely, wasnt seeing any benefit anyway. (2) Elevated troponin Is this a current diagnosis for this admission?: YesPlan: stable; no chest pain; EKG shows RV strain with S1, Q3, T3 but no hypotension or hypoxia; likely troponin leak due to heavy clot burden (3) Family history of pulmonary embolism Is this a current diagnosis for this admission?: YesPlan: etiology never clearly identified, thought secondary to her age and tobacco use. will send hypercoag profile. (4) HTN (hypertension) Qualifiers: Hypertension type: essential hypertension Qualified Code(s): I10 - Essential (primary) hypertension Is this a current diagnosis for this admission?: YesPlan: continue to hold antiHTN due to heavy clot burden; titrate back in as clinically indicated - Time Time Spent with patient: 35 or more minutes Medications reviewed and adjusted accordingly: Yes Anticipated discharge: Home Within: within 24 hours
--- NOTE | 2017-04-09 12:31 | XCELERA REPORT ---
[address] [address] Lower Extremity Venous Evaluation Name: WILFRED DIGGS Age: 51 yrs Gender: Male : 1965 Patient Status: Inpatient Patient Location: [id number]\A Study Date: 04/09/2017 10:33 AM Procedure: Color flow and duplex imaging bilaterally of the veins of the lower extremities as well as the Common Femoral veins. Reason For Study: PE Ordering Physician: YAJAIRA MARTINEZ Performed By: Paulina Martinez Right Sided Venous Evaluation Normal vessel filling wall to wall, compression and augmentation as well as Colour flow down to the infrageniculate veins. Left Sided Venous Evaluation Normal vessel filling wall to wall, compression and augmentation as well as Colour flow down to the infrageniculate veins. Interpretation Summary No duplex evidence of DVT or obstruction in the bilateral lower extremities. : YAJAIRA MARTINEZ [place]
[2017-04-09] MEDS ORDERED: TOPIRAMATE 100 MG TABLET PO ONE (12:45)
[2017-04-09] MEDS ORDERED: FLUOXETINE HCL 20 MG CAPSULE PO ONE (12:45)
[2017-04-09] MEDS: CLONAZEPAM 1 MG TABLET PO SCH ×2 (14:45→22:04)
--- NOTE | 2017-04-09 17:38 | CONSULTATION REPORT E ---
Consultation Report NAME: WILFRED DIGGS : 1965 AGE: 51Y DATE: 04/09/2017 324 A TO: MICK LUKE M.D. FROM: YAJAIRA MARTINEZ M.D. Requesting Physician REASON FOR CONSULTATION: Patient referred for pulmonary embolism. HISTORY OF PRESENT ILLNESS: The patient is a 51-year-old man who tells me there has been no recent change in his lifestyle, he is presently visiting from [place], [place]. He is staying in [place] with his family. He presented in the emergency room with shortness of breath and weakness. He was found to have pulmonary embolism and was started on IV heparin. Today he is doing a lot better. PAST MEDICAL HISTORY: Includes: 1. A history of psychiatric disease, bipolar. He is on medications, and he is compliant. 2. He has a history of hyperlipidemia. 3. Hypertension. 4. He has COPD. 5. Sleep apnea. 6. Diabetes type 1 and type 2. SOCIAL HISTORY: He is . FAMILY HISTORY: His father of cancer. Mother has Alzheimer's and COPD. She also has a history of PE and DVT. He has a child who is alive and well. ALLERGIES: He has allergy to various medications includin. LOVENOX. 2. IRON ALLERGY. 3. TREE NUT ALLERGY. 4. PREDNISONE ALLERGY. REVIEW OF SYSTEMS: As dictated in the HPI. LABORATORIES: White count is 12.8, hemoglobin is 14.3, platelet count is 253,000. Serum electrolytes, liver function tests within normal limits. RADIOLOGY REPORT: CTA chest April 08, 2017: Extensive bilateral pulmonary embolic disease. IMPRESSION AND PLAN: The patient is a 51-year-old man with pulmonary embolism. He has not had a change in lifestyle recently. This appears to be unprovoked. He is on testosterone; he has been on this medication for about 6 months. I agree with switching him from heparin to Eliquis. I explained to him that with any anticoagulation there is the risk of bleeding. He is aware. He is also compliant with his oral medications, and I explained to him that compliance was important. Thrombophilia workup was sent already. I will plan on seeing him back for followup in the office next week to review the results of blood tests that might be available and for him to establish care as an outpatient. I thank you for this consultation and allowing me to be part of his care. DICTATING PHYSICIAN: MICK LUKE M.D. [id number] PHY#: [id number] ID: [id number] JOB#: [id number] ACCT: [id number] cc:MICK LUKE M.D. >
[2017-04-09] MEDS ORDERED: PROMETHAZINE HCL 25 MG TABLET PO PRN (21:11)
[2017-04-09] MEDS: DULOXETINE HCL 30 MG CAPSULE.DR PO SCH (22:00)
[2017-04-09] MEDS: TOLTERODINE TARTRATE 1 MG TABLET PO SCH (22:05)
[2017-04-09] MEDS: APIXABAN 5 MG TABLET PO SCH (22:06)
[2017-04-10] MEDS: CLONAZEPAM 1 MG TABLET PO SCH (05:45)
[2017-04-10 08:20] VITALS: BP 148/80
[2017-04-10] MEDS: APIXABAN 5 MG TABLET PO SCH (09:25)
[2017-04-10] MEDS: TOLTERODINE TARTRATE 1 MG TABLET PO SCH (09:25)
[2017-04-10] MEDS: DULOXETINE HCL 30 MG CAPSULE.DR PO SCH (09:25)
[2017-04-10] MEDS: DOCUSATE SODIUM 100 MG CAPSULE PO SCH (09:26)
[2017-04-10] MEDS ORDERED: TOPIRAMATE 100 MG TABLET PO SCH (10:00)
[2017-04-10] MEDS ORDERED: FLUOXETINE HCL 20 MG CAPSULE PO SCH (10:00)
[2017-04-10] MEDS ORDERED: LACTOBACILLUS ACIDOPHILUS 250 MG TAB PO SCH (10:00)
[2017-04-10] MEDS ORDERED: (PENDING PHARMACY ID) (Tolterodine Tartrate [Detrol La] 4 MG) PO SCH (10:00)
[2017-04-10] MEDS ORDERED: (PENDING PHARMACY ID) (L. Rhamnosus Gg/Inulin [Culturelle Capsule] 1 EACH) PO SCH (10:00)
[2017-04-10] MEDS ORDERED: ARMODAFINIL 250 MG PO SCH (10:00)
--- NOTE | 2017-04-10 10:35 | PDOC DISCHARGE SUMMARY ---
General - Admit/Disc Date/PCP Admission Date/Primary Care Provider: 04/09/17 01:37 Discharge Date: 04/10/17 - Discharge Diagnosis (1) Pulmonary embolism Is this a current diagnosis for this admission?: YesSummary: hypercoag w/u underway, f/u with hematology next Friday at 10am. eliquis 10mg bid x7d then 5mg bid until instructed otherwise. s/s of bleeding were discussed with the pt and his family, all questions asked and answered to their satisfaction, this is med they chose in treatment of his condition. (2) Elevated troponin Is this a current diagnosis for this admission?: YesSummary: 2/2 RV strain from large clot burden, evidenced by ECG changes S1, Q3, T3. (3) Family history of pulmonary embolism Is this a current diagnosis for this admission?: Yes (4) HTN (hypertension) Is this a current diagnosis for this admission?: YesSummary: resume home regimen - Additional Information Resuscitation Status: Full Code Discharge Diet: As Tolerated Discharge Activity: Activity As Tolerated Home Medications: Acamprosate Calcium 333 mg PO TID 04/09/17 Acetaminophen [Tylenol Arthritis 650 mg Tablet] 1,300 mg PO BIDP PRN 04/09/17 Armodafinil [Nuvigil] 250 mg PO DAILY 04/09/17 Aspirin/Acetaminophen/Caffeine [Excedrin Migraine Caplet] 1 each PO DAILYP PRN 04/09/17 Clonazepam [Klonopin 2 mg Tablet] 2 mg PO Q8 04/09/17 Colestipol HCl [Colestid 1 gm Tablet] 2 gm PO BID 04/09/17 Dicyclomine HCl [Bentyl 20 mg Tablet] 20 mg PO TIDP PRN 04/09/17 Duloxetine HCl [Cymbalta] 60 mg PO BID 04/09/17 Esomeprazole Magnesium [Nexium] 40 mg PO QAM 04/09/17 Fluoxetine HCl [Prozac 20 mg Capsule] 20 mg PO DAILY 04/09/17 Furosemide [Lasix 20 mg Tablet] 20 mg PO QAM 04/09/17 L. Rhamnosus GG/Inulin [Culturelle Capsule] 1 each PO DAILY 04/09/17 Lisinopril/Hydrochlorothiazide [Lisinopril-Hctz 20-12.5 mg Tab] 1 each PO DAILY 04/09/17 Loxapine Succinate [Loxapine] 10 mg PO BID 04/09/17 Metoprolol Succinate [Toprol Xl 50 mg Tab.sr] 50 mg PO DAILY 04/09/17 Simvastatin [Zocor 20 mg Tablet] 20 mg PO QHS 04/09/17 Tolterodine Tartrate [Detrol LA] 4 mg PO DAILY 04/09/17 Topiramate [Topamax] 50 mg PO DAILY 04/09/17 Apixaban [Eliquis 5 mg Tablet] 5 mg PO BID #60 tablet 04/10/17 Apixaban [Eliquis 5 mg Tablet] 10 mg PO Q12 #14 tablet 04/10/17 History of Present Illness Patient complains of: SOA History of Present Illness: WILFRED DIGGS is a 51 year old morbidly obese male with underlying hypertension, hyperlipidemia, bipolar disorder, and with a family history and the person of his mother, of pulmonary embolism and DVT, who presents to the emergency room for evaluation of above complaints. Hospital Course Hospital Course: Describes a (sudden onset) less than 24 hour history of generalized weakness and shortness of breath, with shortness of breath particularly noticeable with virtually any exertion. Has chronic bilateral lower extremity swelling, nothing out of the ordinary for him, and without recent change, for which he takes Lasix. No recent immobility. No previous SC or congestive heart failure , or prior pulmonary embolus or DVT. (no recent travel; takes testosterone injections for some months now) Was placed on Augmentin and Zithromax approximately a week ago for what describes his x-ray proven pneumonia, at an urgent care center. He has had nausea but no vomiting. No chest pain, fever or chills. Has remained hemodynamically stable. No hypoxia, with patient currently on 1 L oxygen per nasal cannula. Currently resting quietly, without pain. History 5 years ago of endoscopic proven peptic ulcer disease. Has not bothered him since then." eval in ED found extensive bilat PE with heavy clot burden but no evidence for hypoxia or hypotension so no indication for thrombolytics. he was admitted and started on heparin gtt, changed over to oral regimen next day after much discussion with he an is family they chose eliquis to continue treatment of his condition. on the day of d/c, I found him sitting upright in bed with family around him in no distress and no O2 required with good hemodynamics. He denies chest pain, palpitations, cough, hemoptysis, and leg swelling. still SOA with minimal exertion, but some better, he is stable for d/c at this time. dr shah met with he and his family and hypercoag w/u begun, results stilll pending and he is to f/u with her next week for further treatment rec's. Physical Exam Vital Signs: Temp Pulse Resp BP Pulse Ox 98.3 F 91 21 H 148/80 H 99 04/10/17 08:21 04/10/17 08:21 04/10/17 08:21 04/10/17 08:21 04/10/17 08:21 Intake & Output 04/09/17 04/10/17 04/11/17 06:59 06:59 06:59 Intake Total 120 2774 Output Total 300 2100 Balance -180 674 Weight 135.4 kg 134.2 kg General appearance: PRESENT: no acute distress, morbidly obese, well-developed, well-nourished Head exam: PRESENT: atraumatic Eye exam: PRESENT: EOMI Mouth exam: PRESENT: neck supple Neck exam: ABSENT: tracheal deviation Respiratory exam: PRESENT: clear to auscultation chadd. ABSENT: accessory muscle use Cardiovascular exam: PRESENT: RRR. ABSENT: systolic murmur Results Impressions: Chest X-Ray 04/08/17 19:27 IMPRESSION: NO SIGNIFICANT RADIOGRAPHIC FINDING IN THE CHEST. Chest/Abdomen CTA 04/08/17 21:19 IMPRESSION: Extensive bilateral pulmonary embolic disease is noted above. No acute consolidations or pleural effusions are identified. Other findings as noted above Qualifiers PATEINT BEING DISCHARGED WITH ANY OF THE FOLLOWING DIAGNOSIS?: No VTE patient discharged on overlapping Therapy?: Yes Plan Discharge Plan: d/c home with outpt f/u as noted above; return to the ED for evaluation of worsening SOA, hemoptysis, GIB, etc. Time Spent: Greater than 30 Minutes
[2017-04-10 14:02] LABS: ANTITHROMBIN III ACTIVITY 111 % (75-135); PROTEIN S FREE 116 % (57-157); PROTEIN S FUNCTIONAL 106 % (63-140); PROTEIN S TOTAL 136 % (60-150)
[2017-04-10 16:40] LABS: PROTEIN C ANTIGEN 132 % (60-150)
[2017-04-11 10:57] LABS: PROTEIN C ACTIVITY 184 % (73-180)
== END 2017-04-10 10:00 | disposition home or self-care (01) | DRG 176 ==
LOC: ER 18:41 → EH 23:58 → UNDOADMIN 23:58 → EH 04-09 01:37 → 3W 04-09 02:12
PROVIDERS: ADMIT Family Medicine; ATTEND Family Medicine
DX: I26.99 Other pulmonary embolism without acute cor pulmonale (principal); Z68.41 Body mass index [BMI] 40.0-44.9, adult; I10 Essential (primary) hypertension; E78.00 Pure hypercholesterolemia, unspecified; K21.9 Gastro-esophageal reflux disease without esophagitis; F31.9 Bipolar disorder, unspecified; F41.9 Anxiety disorder, unspecified; E66.01 Morbid (severe) obesity due to excess calories; Z87.11 Personal history of peptic ulcer disease; E78.5 Hyperlipidemia, unspecified; F43.10 Post-traumatic stress disorder, unspecified; Z80.9 Family history of malignant neoplasm, unspecified; Z84.89 Family history of other specified conditions; Z91.018 Allergy to other foods; Z82.49 Family history of ischemic heart disease and other diseases of the circulatory system; R79.89 Other specified abnormal findings of blood chemistry; Z79.01 Long term (current) use of anticoagulants; Z90.49 Acquired absence of other specified parts of digestive tract; Z88.8 Allergy status to other drugs, medicaments and biological substances
CPT/HCPCS: 36415; 71020; 71275; 80053; 81001; 81241; 82550; 82553; 83735; 83880; 84484; 85025; 85300; 85301; 85302; 85305; 85306; 85597; 85598; 85610; 85613; 85730; 85732; 86146; 86147; 86148; 86849; 93005; 93010; 93970; 99285; J1644; J3490

== ENCOUNTER 2017-04-27 21:24 | Emergency (ER) | payer OTHER, MEDICARE ==
[2017-04-27 23:29] LABS: ABSOLUTE BASOPHILS # (AUTO) 0.1 10^3/uL (0.0-0.2); ABSOLUTE EOSINOPHILS # (AUTO) 0.3 10^3/uL (0.0-0.6); ABSOLUTE LYMPHOCYTES (AUTO) 2.7 10^3/uL (0.5-4.7); ABSOLUTE MONOCYTES (AUTO) 1.1 10^3/uL (0.1-1.4); ABSOLUTE NEUT (AUTO) 6.8 10^3/uL (1.7-8.2); BASOPHILS % (AUTO) 1.1 % (0-2); EOSINOPHILS % (AUTO) 2.5 % (0-6); HEMATOCRIT 48.5 % (37.9-51.0); HEMOGLOBIN 16.1 g/dL (13.5-17.0); HGB HCT DIFFERENCE -0.2; LYMPHOCYTES % (AUTO) 24.5 % (13-45); MEAN CORPUSCULAR HEMOGLOBIN 26.5 pg (27.0-33.4); MEAN CORPUSCULAR HGB CONC 33.3 g/dL (32.0-36.0); MEAN CORPUSCULAR VOLUME 80 fl (80-97); MONOCYTES % (AUTO) 10.3 % (3-13); RED BLOOD COUNT 6.09 10^6/uL (4.35-5.55); RED CELL DISTRIBUTION WIDTH 15.8 % (11.5-14.0); SEGMENTED NEUTROPHILS % (AUTO) 61.6 % (42-78); WHITE BLOOD COUNT 11.1 10^3/uL (4.0-10.5)
[2017-04-27 23:36] LABS: PROTHROMBIN TIME 13.2 SEC (11.4-15.4)
[2017-04-27 23:45] LABS: ALANINE AMINOTRANSFERASE 60 U/L (21-72); ALBUMIN 4.8 g/dL (3.5-5.0); ALKALINE PHOSPHATASE 145 U/L (38-126); ASPARTATE AMINO TRANSFERASE 42 U/L (17-59); BILIRUBIN,DIRECT 0.3 mg/dL (0.0-0.4); BILIRUBIN,TOTAL 0.6 mg/dL (0.2-1.3); BLOOD UREA NITROGEN 16 mg/dL (7-20); CALCIUM 10.2 mg/dL (8.4-10.2); CARBON DIOXIDE 25 mmol/L (22-30); CHLORIDE 99 mmol/L (98-107); GLUCOSE 92 mg/dL (75-110); POTASSIUM 4.2 mmol/L (3.6-5.0); TOTAL PROTEIN 7.9 g/dL (6.3-8.2)
[2017-04-27 23:51] LABS: ANION GAP 14 (5-19); SODIUM 137.8 mmol/L (137-145)
[2017-04-28] MEDS ORDERED: HYDROCODONE/ACETAMINOPHEN 5-325 MG TABLET PO ONE (01:12)
[2017-04-28] MEDS ORDERED: LIDOCAINE 1% INJ-PF (10 MG/ML) 30 ML SDV INJ ONE (01:12)
[2017-04-28] MEDS ORDERED: CEFTRIAXONE INJ 1000 MG VIAL IM ONE (01:12)
--- NOTE | 2017-04-28 01:49 | ER Document Report ---
ED General - General Chief Complaint: Rectal Bleeding Stated Complaint: EAR PAIN,RECTAL BLEEDING Time Seen by Provider: 04/28/17 00:55 Notes: Patient is a 51 year old male that comes to the ED for chief complaint of pain in both ears, much more in his right, worse over the past 2 days. He has had trouble with ear infections in the past, completed antibiotics for this within the past 2 months but cannot remember the name. The antibiotics did work. He denies headache, fever, vomiting, dizziness. He also states that he has had some rectal bleeding, states that he noticed this while wiping, states that the remainder of his bowel movement looked normal. He states that he just wants the area checked, he has had a internal hemorrhoid for a long time. He is on Eliquis. TRAVEL OUTSIDE OF THE [place] IN LAST 30 DAYS: No - Related Data Allergies/Adverse Reactions: aripiprazole Allergy (Verified 04/28/17 03:47) carbidopa Allergy (Verified 04/28/17 03:47) desvenlafaxine [From Pristiq] Allergy (Verified 04/28/17 03:47) enoxaparin Allergy (Verified 04/28/17 03:47) iron Allergy (Verified 04/28/17 03:47) tree nut Allergy (Verified 04/28/17 03:47) valsartan Allergy (Verified 04/28/17 03:47) prednisone Adverse Reaction (Verified 04/28/17 03:47) Confusion NEUROMUSCULAR BLOCKERS, STEROIDAL Allergy (Uncoded 04/28/17 03:47) Past Medical History - General Information source: Patient - Social History Smoking Status: Never Smoker Frequency of alcohol use: None Drug Abuse: None Lives with: Family Family History: Reviewed & Not Pertinent Patient has suicidal ideation: No Patient has homicidal ideation: No - Past Medical History Cardiac Medical History: Reports: Hx Hypercholesterolemia, Hx Hypertension Denies: Hx Congestive Heart Failure, Hx DVT, Hx Heart Attack, Hx Pulmonary Embolism Pulmonary Medical History: Denies: Hx Asthma, Hx COPD, Hx Sleep Apnea Neurological Medical History: Reports: Hx Migraine. Denies: Hx Seizures Endocrine Medical History: Denies: Hx Diabetes Mellitus Type 1, Hx Diabetes Mellitus Type 2, Hx Hyperthyroidism, Hx Hypothyroidism Renal/ Medical History: Denies: Hx Peritoneal Dialysis GI Medical History: Reports: Hx Gastroesophageal Reflux Disease. Denies: Hx Cirrhosis, Hx Hepatitis Musculoskeltal Medical History: Reports Hx Arthritis Psychiatric Medical History: Reports: Hx Bipolar Disorder, Hx Post Traumatic Stress Disorder Denies: Hx Depression Infectious Medical History: Denies: Hx C-Diff, Hx Hepatitis, Hx MRSA Past Surgical History: Reports: Hx Cholecystectomy, Hx Orthopedic Surgery - bilateral should & wrist, Hx Tonsillectomy - Immunizations Hx Diphtheria, Pertussis, Tetanus Vaccination: Yes Review of Systems - Review of Systems Constitutional: No symptoms reported EENT: See HPI Cardiovascular: No symptoms reported Respiratory: No symptoms reported Gastrointestinal: See HPI Genitourinary: No symptoms reported Male Genitourinary: No symptoms reported Musculoskeletal: No symptoms reported Skin: No symptoms reported Hematologic/Lymphatic: No symptoms reported Neurological/Psychological: No symptoms reported Physical Exam - Vital signs Vitals: Temp Pulse Resp BP Pulse Ox 97.5 F 71 18 136/89 H 95 04/27/17 21:56 04/27/17 21:56 04/27/17 21:56 04/27/17 21:56 04/27/17 21:56 Interpretation: Normal - General General appearance: Alert In distress: None - Appears to be in mild pain but no distress - HEENT Head: Normocephalic, Atraumatic Eyes: Normal Conjunctiva: Normal Extraocular movements intact: Yes Eyelashes: Normal Pupils: PERRL Ears: Normal External canal: Normal Tympanic membrane: Other - TM with erythematous appearance, loss of landmarks, bulging, no rupture, no other abnormality noted. Mastoids unremarkable Sinus: Normal Nasal: Normal Mouth/Lips: Normal Mucous membranes: Normal Pharynx: Normal Neck: Normal - Respiratory Respiratory status: No respiratory distress Chest status: Nontender Breath sounds: Normal. No: Decreased air movement, Wheezing Chest palpation: Normal - Cardiovascular Rhythm: Regular Heart sounds: Normal auscultation Murmur: No - Abdominal Inspection: Normal Distension: No distension Bowel sounds: Normal Tenderness: Nontender Organomegaly: No organomegaly - Rectal Stool: No: Black, Bloody Hemorrhoids: Internal. No: External, Anal fissure, Mass - Back Back: Normal, Nontender - Extremities General upper extremity: Normal inspection, Nontender, Normal color, Normal ROM , Normal temperature General lower extremity: Normal inspection, Nontender, Normal color, Normal ROM , Normal temperature, Normal weight bearing. No: Vince's sign - Neurological Neuro grossly intact: Yes Cognition: Normal Orientation: AAOx4 [place] Coma Scale Eye Opening: Spontaneous Yung Coma Scale Verbal: Oriented Yung Coma Scale Motor: Obeys Commands [place] Coma Scale Total: 15 Speech: Normal Motor strength normal: LUE, RUE, LLE, RLE Sensory: Normal - Psychological Associated symptoms: Normal affect, Normal mood - Skin Skin Temperature: Warm Skin Moisture: Dry Skin Color: Normal Course - Re-evaluation Re-evalutation: Patient does have an internal hemorrhoid on examination, no gross bleeding, no significant tenderness to the area. 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 Nontender abdomen, no grossly bloody stools reported, just small amount with wiping. Patient does have painful appearing right otitis media, he appears uncomfortable and he states he could not sleep and came because of this reason. No other concerning abnormalities noted. Discussed treatment, follow-up, return precautions, patient and family state understanding and agreement - Vital Signs Vital signs: Temp Pulse Resp BP Pulse Ox 97.8 F 69 18 117/76 95 04/28/17 02:40 04/28/17 02:40 04/28/17 02:40 04/28/17 02:40 04/28/17 02:40 - Laboratory Result Diagrams: 04/27/17 23:00 04/27/17 23:00 Laboratory results interpreted by me: 04/27/17 04/27/17 23:00 23:00 WBC 11.1 H RBC 6.09 H MCH 26.5 L RDW 15.8 H Alkaline Phosphatase 145 H Discharge - Discharge Clinical Impression: Hematochezia Ear pain Qualifiers: Laterality: bilateral Qualified Code(s): H92.03 - Otalgia, bilateral Condition: Stable Disposition: HOME, SELF-CARE Additional Instructions: Your exam is consistent with a middle ear infection. Take the antibiotic as prescribed, follow up with your Provider. Take tylenol for pain, only take the additional pain medication if needed to sleep. If you do, take the stool softener. Follow up with your Process Area Supervisor for ongoing internal hemorrhoid. Return to the ED for any concerning symptoms. Prescriptions: Cefdinir [Omnicef 300 mg Capsule] 1 cap PO BID #20 capsule Docusate Sodium [Colace 100 mg Capsule] 100 mg PO DAILY #30 capsule Hydrocodone/Acetaminophen [[place] 5-325 mg Tablet] 1 - 2 tab PO ASDIR #10 tablet
[2017-04-28 03:47] VITALS: BP 117/76
== END 2017-04-28 02:45 | disposition home or self-care (01) ==
LOC: ER 21:24
DX: K92.1 Melena (principal); H66.91 Otitis media, unspecified, right ear; H92.03 Otalgia, bilateral; K64.8 Other hemorrhoids; I10 Essential (primary) hypertension; Z79.01 Long term (current) use of anticoagulants; Z88.8 Allergy status to other drugs, medicaments and biological substances; Z91.018 Allergy to other foods
CPT/HCPCS: 99283; 96372; 36415; 85025; 85610; 80053; J3490; J0696

== ENCOUNTER 2018-02-07 18:42 | Emergency (ER) | payer MEDICARE, OTHER ==
--- NOTE | 2018-02-07 20:08 | ER Document Report ---
ED Medical Screen (RME) - General Chief Complaint: Diarrhea Stated Complaint: FLU LIKE SYMPTOMS Time Seen by Provider: 02/07/18 20:04 Notes: This 52-year-old male patient comes emergency room complaining of onset this morning of fever, chills, dizzy sensation, and aching all over. There is minimal cough associated with this. He has diarrhea but that is a chronic problem and he takes up to 10 Imodium on a daily basis for this problem. I have greeted and performed a rapid initial assessment of this patient. A comprehensive ED assessment and evaluation of the patient, analysis of test results and completion of the medical decision making process will be conducted by additional ED providers. TRAVEL OUTSIDE OF THE [place] IN LAST 30 DAYS: No - Related Data Allergies/Adverse Reactions: aripiprazole Allergy (Verified 02/07/18 18:45) carbidopa Allergy (Verified 04/28/17 03:47) desvenlafaxine [From Pristiq] Allergy (Verified 04/28/17 03:47) enoxaparin Allergy (Verified 02/07/18 18:45) iron Allergy (Verified 04/28/17 03:47) tree nut Allergy (Verified 02/07/18 18:45) valsartan Allergy (Verified 04/28/17 03:47) prednisone Adverse Reaction (Verified 02/07/18 18:45) Confusion NEUROMUSCULAR BLOCKERS, STEROIDAL Allergy (Uncoded 04/28/17 03:47) Past Medical History - Past Medical History Cardiac Medical History: Reports: Hx Hypercholesterolemia, Hx Hypertension Denies: Hx Congestive Heart Failure, Hx DVT, Hx Heart Attack, Hx Pulmonary Embolism Pulmonary Medical History: Denies: Hx Asthma, Hx COPD, Hx Sleep Apnea Neurological Medical History: Reports: Hx Migraine. Denies: Hx Seizures Endocrine Medical History: Denies: Hx Diabetes Mellitus Type 1, Hx Diabetes Mellitus Type 2, Hx Hyperthyroidism, Hx Hypothyroidism Renal/ Medical History: Denies: Hx Peritoneal Dialysis GI Medical History: Reports: Hx Gastroesophageal Reflux Disease. Denies: Hx Cirrhosis, Hx Hepatitis Musculoskeltal Medical History: Reports Hx Arthritis Psychiatric Medical History: Reports: Hx Bipolar Disorder, Hx Post Traumatic Stress Disorder Denies: Hx Depression Infectious Medical History: Denies: Hx C-Diff, Hx Hepatitis, Hx MRSA Past Surgical History: Reports: Hx Cholecystectomy, Hx Orthopedic Surgery - bilateral should & wrist, Hx Tonsillectomy - Immunizations Hx Diphtheria, Pertussis, Tetanus Vaccination: Yes Physical Exam - Vital signs Vitals: Temp Pulse Resp BP Pulse Ox 99.0 F 99 20 165/85 H 96 02/07/18 18:52 02/07/18 18:52 02/07/18 18:52 02/07/18 18:52 02/07/18 18:52 Course - Vital Signs Vital signs: Temp Pulse Resp BP Pulse Ox 99.0 F 99 20 165/85 H 96 02/07/18 18:52 02/07/18 18:52 02/07/18 18:52 02/07/18 18:52 02/07/18 18:52
[2018-02-07] MEDS ORDERED: ACETAMINOPHEN 325 MG TABLET PO ONE (20:42)
[2018-02-07 20:43] LABS: ABSOLUTE BASOPHILS # (AUTO) 0.1 10^3/uL (0.0-0.2); ABSOLUTE EOSINOPHILS # (AUTO) 0.2 10^3/uL (0.0-0.6); ABSOLUTE LYMPHOCYTES (AUTO) 0.6 10^3/uL (0.5-4.7); ABSOLUTE MONOCYTES (AUTO) 0.7 10^3/uL (0.1-1.4); ABSOLUTE NEUT (AUTO) 4.5 10^3/uL (1.7-8.2); BASOPHILS % (AUTO) 0.9 % (0-2); EOSINOPHILS % (AUTO) 3.4 % (0-6); HEMATOCRIT 40.6 % (37.9-51.0); HEMOGLOBIN 14.1 g/dL (13.5-17.0); MEAN CORPUSCULAR HEMOGLOBIN 28.3 pg (27.0-33.4); MEAN CORPUSCULAR HGB CONC 34.7 g/dL (32.0-36.0); MEAN CORPUSCULAR VOLUME 82 fl (80-97); MONOCYTES % (AUTO) 11.3 % (3-13); PLATELET COUNT 257 10^3/uL (150-450); RED BLOOD COUNT 4.97 10^6/uL (4.35-5.55); SEGMENTED NEUTROPHILS % (AUTO) 74.4 % (42-78); TOTAL CELLS COUNTED % (AUTO) 100 %
--- NOTE | 2018-02-07 20:44 | ER Document Report ---
ED Flu Like - General Chief Complaint: Diarrhea Stated Complaint: FLU LIKE SYMPTOMS Time Seen by Provider: 02/07/18 20:04 Mode of Arrival: Ambulatory Information source: Patient Notes: Patient presents complaining of flulike symptoms. Patient states he was around someone recently with viral illness symptoms. Patient reports subjective fever today with minimal cough. Patient complains of generalized body aches and chills. Patient denies any sore throat or ear pain. Patient denies any chest pain, abdominal pain or back pain. TRAVEL OUTSIDE OF THE [place] IN LAST 30 DAYS: No - HPI Onset: This morning Timing/Duration: Persistent Quality of pain: Achy Pain Level: 4 Associated symptoms: Body/muscle aches, Chills, Nonproductive cough, Diarrhea, Fever - Subjective. denies: Chest pain, Productive cough, Nausea, Vomiting, Shortness of breath Recently seen / treated by doctor: No - Related Data Allergies/Adverse Reactions: aripiprazole Allergy (Verified 02/07/18 18:45) carbidopa Allergy (Verified 04/28/17 03:47) desvenlafaxine [From Pristiq] Allergy (Verified 04/28/17 03:47) enoxaparin Allergy (Verified 02/07/18 18:45) iron Allergy (Verified 04/28/17 03:47) tree nut Allergy (Verified 02/07/18 18:45) valsartan Allergy (Verified 04/28/17 03:47) prednisone Adverse Reaction (Verified 02/07/18 20:12) Confusion NEUROMUSCULAR BLOCKERS, STEROIDAL Allergy (Uncoded 04/28/17 03:47) Past Medical History - General Information source: Patient - Social History Smoking Status: Never Smoker Chew tobacco use (# tins/day): No Frequency of alcohol use: None Drug Abuse: None Lives with: Spouse/Significant other Family History: Reviewed & Not Pertinent Patient has suicidal ideation: No Patient has homicidal ideation: No - Past Medical History Cardiac Medical History: Reports: Hx Hypercholesterolemia, Hx Hypertension Denies: Hx Congestive Heart Failure, Hx DVT, Hx Heart Attack, Hx Pulmonary Embolism Pulmonary Medical History: Denies: Hx Asthma, Hx COPD, Hx Sleep Apnea Neurological Medical History: Reports: Hx Migraine. Denies: Hx Seizures Endocrine Medical History: Denies: Hx Diabetes Mellitus Type 1, Hx Diabetes Mellitus Type 2, Hx Hyperthyroidism, Hx Hypothyroidism Renal/ Medical History: Denies: Hx Peritoneal Dialysis GI Medical History: Reports: Hx Gastroesophageal Reflux Disease, Hx Hiatal Hernia, Other - Chronic diarrhea. Denies: Hx Cirrhosis, Hx Hepatitis Musculoskeltal Medical History: Reports Hx Arthritis Psychiatric Medical History: Reports: Hx Anxiety, Hx Bipolar Disorder, Hx Depression, Hx Post Traumatic Stress Disorder Infectious Medical History: Denies: Hx C-Diff, Hx Hepatitis, Hx MRSA Past Surgical History: Reports: Hx Cholecystectomy, Hx Orthopedic Surgery - bilateral should & wrist, Hx Tonsillectomy - Immunizations Hx Diphtheria, Pertussis, Tetanus Vaccination: Yes Review of Systems - Review of Systems Constitutional: Chills, Fever - Subjective, Malaise. denies: Recent illness EENT: No symptoms reported. denies: Throat pain Cardiovascular: Dizziness. denies: Chest pain Respiratory: Cough. denies: Short of breath Gastrointestinal: Diarrhea. denies: Abdominal pain, Nausea, Vomiting Genitourinary: No symptoms reported. denies: Dysuria Male Genitourinary: No symptoms reported Musculoskeletal: Other - Generalized body aches. denies: Back pain Skin: No symptoms reported. denies: Rash Hematologic/Lymphatic: No symptoms reported Neurological/Psychological: No symptoms reported. denies: Weakness Physical Exam - Vital signs Vitals: Temp Pulse Resp BP Pulse Ox 99.0 F 99 20 165/85 H 96 02/07/18 18:52 02/07/18 18:52 02/07/18 18:52 02/07/18 18:52 02/07/18 18:52 - General General appearance: Appears well, Alert In distress: None - HEENT Head: Normocephalic, Atraumatic Eyes: Normal Conjunctiva: Normal Ears: Normal External canal: Normal Nasal: Normal Mouth/Lips: Normal Mucous membranes: Normal Pharynx: Normal Neck: Normal, Supple. No: Lymphadenopathy, Meningismus - Respiratory Respiratory status: No respiratory distress Chest status: Nontender Breath sounds: Normal. No: Rales, Rhonchi, Stridor, Wheezing Chest palpation: Normal - Cardiovascular Rhythm: Regular Heart sounds: S1 appreciated, S2 appreciated Murmur: No - Abdominal Inspection: Morbidly Obese Distension: No distension Bowel sounds: Normal Tenderness: Nontender - Back Back: Normal. No: CVA tenderness, Vertebra tenderness - Extremities General upper extremity: Normal inspection, Normal strength General lower extremity: Edema - 1+ bilat LE, Normal strength - Neurological Neuro grossly intact: Yes Cognition: Normal Yung Coma Scale Eye Opening: Spontaneous [place]ung Coma Scale Verbal: Oriented [place] Coma Scale Motor: Obeys Commands [place] Coma Scale Total: 15 - Psychological Associated symptoms: Normal affect, Normal mood - Skin Skin Temperature: Warm Skin Moisture: Dry Skin Color: Normal Course - Re-evaluation Re-evalutation: 02/07/18 21:52 Patient nontoxic in appearance at this time. Reviewed results of diagnostic tests with patient and his significant other. Patient encouraged to follow-up with his primary doctor Friday for a recheck. Patient presents with symptoms concerning for viral illness especially given history of recent sick contact. Patient without any symptoms concerning for pneumonia, no concern for sepsis. Good return precautions given to patient. Patient agreeable with this discharge plan of care. - Vital Signs Vital signs: Temp Pulse Resp BP Pulse Ox 99.5 F 93 18 139/93 H 96 02/07/18 22:10 02/07/18 22:10 02/07/18 22:10 02/07/18 22:10 02/07/18 22:10 - Laboratory Result Diagrams: 02/07/18 20:30 02/07/18 20:30 Laboratory results interpreted by me: 02/07/18 20:30 Lymphocytes % 10.0 L Labs- Entire Visit 02/07/18 02/07/18 02/07/18 20:17 20:30 20:30 WBC 6.0 RBC 4.97 Hgb 14.1 Hct 40.6 MCV 82 MCH 28.3 MCHC 34.7 RDW 14.0 Plt Count 257 Seg Neutrophils % 74.4 Lymphocytes % 10.0 L Monocytes % 11.3 Eosinophils % 3.4 Basophils % 0.9 Absolute Neutrophils 4.5 Absolute Lymphocytes 0.6 Absolute Monocytes 0.7 Absolute Eosinophils 0.2 Absolute Basophils 0.1 Sodium 141.8 Potassium 4.4 Chloride 102 Carbon Dioxide 27 Anion Gap 13 BUN 13 Creatinine 1.02 Est GFR ( Amer) > 60 Est GFR (Non-Af Amer) > 60 Glucose 102 Calcium 9.9 Total Bilirubin 0.3 Direct Bilirubin 0.3 Neonat Total Bilirubin Not Reportable Neonat Direct Bilirubin Not Reportable Neonat Indirect Bili Not Reportable AST 34 ALT 53 Alkaline Phosphatase 102 Creatine Kinase Total Protein 7.0 Albumin 4.3 Urine Color YELLOW Urine Appearance CLEAR Urine pH 7.0 Ur Specific [place] 1.014 Urine Protein NEGATIVE Urine Glucose (UA) NEGATIVE Urine Ketones NEGATIVE Urine Blood NEGATIVE Urine Nitrite NEGATIVE Urine Bilirubin NEGATIVE Urine Urobilinogen NEGATIVE Ur Leukocyte Esterase NEGATIVE Urine WBC (Auto) 0 Urine RBC (Auto) 0 Urine Mucus (Auto) RARE Urine Ascorbic Acid NEGATIVE 02/07/18 20:30 WBC RBC Hgb Hct MCV MCH MCHC RDW Plt Count Seg Neutrophils % Lymphocytes % Monocytes % Eosinophils % Basophils % Absolute Neutrophils Absolute Lymphocytes Absolute Monocytes Absolute Eosinophils Absolute Basophils Sodium Potassium Chloride Carbon Dioxide Anion Gap BUN Creatinine Est GFR ( Amer) Est GFR (Non-Af Amer) Glucose Calcium Total Bilirubin Direct Bilirubin Neonat Total Bilirubin Neonat Direct Bilirubin Neonat Indirect Bili AST ALT Alkaline Phosphatase Creatine Kinase 163 Total Protein Albumin Urine Color Urine Appearance Urine pH Ur Specific [place] Urine Protein Urine Glucose (UA) Urine Ketones Urine Blood Urine Nitrite Urine Bilirubin Urine Urobilinogen Ur Leukocyte Esterase Urine WBC (Auto) Urine RBC (Auto) Urine Mucus (Auto) Urine Ascorbic Acid 02/07/18 21:52 Labs- Entire Visit 02/07/18 02/07/18 02/07/18 20:17 20:30 20:30 WBC 6.0 RBC 4.97 Hgb 14.1 Hct 40.6 MCV 82 MCH 28.3 MCHC 34.7 RDW 14.0 Plt Count 257 Seg Neutrophils % 74.4 Lymphocytes % 10.0 L Monocytes % 11.3 Eosinophils % 3.4 Basophils % 0.9 Absolute Neutrophils 4.5 Absolute Lymphocytes 0.6 Absolute Monocytes 0.7 Absolute Eosinophils 0.2 Absolute Basophils 0.1 Sodium 141.8 Potassium 4.4 Chloride 102 Carbon Dioxide 27 Anion Gap 13 BUN 13 Creatinine 1.02 Est GFR ( Amer) > 60 Est GFR (Non-Af Amer) > 60 Glucose 102 Calcium 9.9 Total Bilirubin 0.3 Direct Bilirubin 0.3 Neonat Total Bilirubin Not Reportable Neonat Direct Bilirubin Not Reportable Neonat Indirect Bili Not Reportable AST 34 ALT 53 Alkaline Phosphatase 102 Creatine Kinase Total Protein 7.0 Albumin 4.3 Urine Color YELLOW Urine Appearance CLEAR Urine pH 7.0 Ur Specific [place] 1.014 Urine Protein NEGATIVE Urine Glucose (UA) NEGATIVE Urine Ketones NEGATIVE Urine Blood NEGATIVE Urine Nitrite NEGATIVE Urine Bilirubin NEGATIVE Urine Urobilinogen NEGATIVE Ur Leukocyte Esterase NEGATIVE Urine WBC (Auto) 0 Urine RBC (Auto) 0 Urine Mucus (Auto) RARE Urine Ascorbic Acid NEGATIVE 02/07/18 20:30 WBC RBC Hgb Hct MCV MCH MCHC RDW Plt Count Seg Neutrophils % Lymphocytes % Monocytes % Eosinophils % Basophils % Absolute Neutrophils Absolute Lymphocytes Absolute Monocytes Absolute Eosinophils Absolute Basophils Sodium Potassium Chloride Carbon Dioxide Anion Gap BUN Creatinine Est GFR ( Amer) Est GFR (Non-Af Amer) Glucose Calcium Total Bilirubin Direct Bilirubin Neonat Total Bilirubin Neonat Direct Bilirubin Neonat Indirect Bili AST ALT Alkaline Phosphatase Creatine Kinase 163 Total Protein Albumin Urine Color Urine Appearance Urine pH Ur Specific [place] Urine Protein Urine Glucose (UA) Urine Ketones Urine Blood Urine Nitrite Urine Bilirubin Urine Urobilinogen Ur Leukocyte Esterase Urine WBC (Auto) Urine RBC (Auto) Urine Mucus (Auto) Urine Ascorbic Acid - Diagnostic Test Radiology reviewed: Reports reviewed Discharge - Discharge Clinical Impression: Myalgia, Cough Headache Qualifiers: Headache type: unspecified Headache chronicity pattern: episodic headache Intractability: not intractable Qualified Code(s): R51 - Headache Condition: Stable Disposition: HOME, SELF-CARE Instructions: Acetaminophen, Headache ([facility]), Viral Syndrome ([facility]) Additional Instructions: Return immediately for any new or worsening symptoms Followup with your primary care provider, call tomorrow to make a followup appointment You may continue to take Tylenol [id number] for any headache symptoms as well as generalized body aches Referrals: [facility] [Provider Group] - 02/09/18
[2018-02-07 20:58] LABS: APPEARANCE,URINE CLEAR; BILIRUBIN,URINE NEGATIVE (NEGATIVE); COLOR,URINE YELLOW; GLUCOSE, URINE NEGATIVE (NEGATIVE); KETONES,URINE NEGATIVE (NEGATIVE); LEUKOCYTE ESTERASE,URINE NEGATIVE (NEGATIVE); NITRITE,URINE NEGATIVE (NEGATIVE); PROTEIN,URINE NEGATIVE (NEGATIVE); URINE SPECIFIC GRAVITY 1.014; UROBILINOGEN,URINE NEGATIVE mg/dL (<2.0)
[2018-02-07 21:01] LABS: ALANINE AMINOTRANSFERASE 53 U/L (21-72); ALBUMIN 4.3 g/dL (3.5-5.0); ALKALINE PHOSPHATASE 102 U/L (38-126); ANION GAP 13 (5-19); ASPARTATE AMINO TRANSFERASE 34 U/L (17-59); BILIRUBIN,DIRECT 0.3 mg/dL (0.0-0.4); BILIRUBIN,TOTAL 0.3 mg/dL (0.2-1.3); BLOOD UREA NITROGEN 13 mg/dL (7-20); CALCIUM 9.9 mg/dL (8.4-10.2); CARBON DIOXIDE 27 mmol/L (22-30); CHLORIDE 102 mmol/L (98-107); GLUCOSE 102 mg/dL (75-110); POTASSIUM 4.4 mmol/L (3.6-5.0); SODIUM 141.8 mmol/L (137-145)
--- NOTE | 2018-02-07 21:23 | RADIOLOGY REPORT (SQ) ---
EXAM DESCRIPTION: CHEST 2 VIEWS COMPLETED DATE/TIME: 02/07/2018 9:08 pm REASON FOR STUDY: cough COMPARISON: CT angio chest 04/08/2017 Two-view chest 04/08/2017 EXAM PARAMETERS: NUMBER OF VIEWS: two views TECHNIQUE: Digital Frontal and Lateral radiographic views of the chest acquired. RADIATION DOSE: NA LIMITATIONS: none FINDINGS: LUNGS AND PLEURA: No opacities, masses or pneumothorax. No pleural effusion. MEDIASTINUM AND HILAR STRUCTURES: No masses or contour abnormalities. HEART AND VASCULAR STRUCTURES: Heart normal size. No evidence for failure. BONES: No acute findings. HARDWARE: Clips right upper quadrant post cholecystectomy OTHER: No other significant finding. IMPRESSION: NO ACUTE RADIOGRAPHIC FINDING IN THE CHEST. TECHNICAL DOCUMENTATION: JOB ID: [id number] [employer]- All Rights Reserved Reading location - IP/workstation name: [email or web address]
[2018-02-07 22:11] VITALS: BP 139/93
== END 2018-02-07 22:09 | disposition home or self-care (01) ==
LOC: ER 18:42
DX: M79.1 Myalgia (principal); R05 Cough; R51 Headache; R19.7 Diarrhea, unspecified; E78.00 Pure hypercholesterolemia, unspecified; I10 Essential (primary) hypertension; Z90.49 Acquired absence of other specified parts of digestive tract
CPT/HCPCS: 99284; 36415; 82550; 85025; 80053; 81001; 71046; A9270

== ENCOUNTER → 2018-10-13 | Outpatient (CLI) | payer MEDICARE ==
--- NOTE | 2018-10-13 16:53 | WOMENS IMAGING REPORT ---
EXAM DESCRIPTION: BILAT DIAGNOSTIC MAMMO W/CAD; U/S BREAST UNILAT LIMITED COMPLETED DATE/TIME: 10/13/2018 12:55 pm; 10/13/2018 1:31 pm REASON FOR STUDY: N63.20 UNSPECIFIED LUMP IN THE LEFT BREAST, UNSPECIFIED QUADRANT; LEFT BREAST LUMP N63.20 N63.20 UNSPECIFIED LUMP IN THE LEFT BREAST, UNSPECIFIED QUAD COMPARISON: None. TECHNIQUE: Standard craniocaudal and mediolateral oblique views of the right and left male breast re corded using digital acquisition. Additional bilateral 90 mediolateral mammograms. Left male breast ultrasound was performed. LIMITATIONS: None. FINDINGS: RIGHT BREAST MASSES: No suspicious masses. CALCIFICATIONS: No new or suspicious calcifications. ARCHITECTURAL DISTORTION: None. DEVELOPING DENSITY: None. ASYMMETRY: None noted. OTHER: No other significant findings. LEFT BREAST MASSES: No suspicious masses. CALCIFICATIONS: No new or suspicious calcifications. ARCHITECTURAL DISTORTION: None. DEVELOPING DENSITY: None. ASYMMETRY: None noted. OTHER: Mild gynecomastia. Read with the assistance of CAD: .[facility] - R2 [employer] Worker Version 9.2 Left male breast ultrasound: Patient presents with a palpable abnormality left breast laterally at 3 o'clock position. This is se en in the area indicated by the patient, a benign-appearing hypoechoic 6 x 5 mm lymph node is present . Normal cortical thickness. No worrisome features. In the left retroareolar region, there mild gy necomastia. In the right male breast, comparison ultrasound demonstrates no right-sided gynecomastia. No signifi cant focal findings. IMPRESSION: No mammographic/ sonographic evidence for malignancy bilaterally. Palpable abnormality left breast laterally correlates with a benign lymph node at sonography. BREAST DENSITY: a. The breasts are almost entirely fatty. BIRAD: 1 Negative. RECOMMENDATION: RECOMMENDED FOLLOW UP: Clinical follow-up recommended SPECIFIC INTERVENTION/IMAGING/CONSULTATION RECOMMENDED:No additional intervention/ imaging/consultati on needed at this time. COMMUNICATION:Patient notified by letter COMMENT: The patient has been notified of the results by letter per MQSA requirements. Additional no tification policies are in place for contacting patient with suspicious or incomplete findings. Quality ID #225: The [employer] recommends an annual screening mammogram for women aged 40 years or over. This facility utilizes a reminder system to ensure that all patients receive reminder letters, and/or direct phone calls for appointments. This includes reminders for routine scr eening mammograms, diagnostic mammograms, or other Breast Imaging Interventions when appropriate. Th is patient will be placed in the appropriate reminder system. The [employer] (ACR) has developed recommendations for screening MRI of the breast s in certain patient populations, to be used in conjunction with mammography. Breast MRI surveillanc e may be appropriate for women with more than 20% lifetime risk of developing breast cancer as deter mined by genetic testing, significant family history of the disease, or history of mantle radiation f or Hodgkins Disease. ACR Practice Guidelines 2008. TECHNICAL DOCUMENTATION: FINDING NUMBER: (1) ASSESSMENT: (1) JOB ID: [id number] [employer]- All Rights Reserved Reading location - IP/workstation name: [facility]-[email or web address]
--- NOTE | 2018-10-13 16:53 | WOMENS IMAGING REPORT ---
EXAM DESCRIPTION: BILAT DIAGNOSTIC MAMMO W/CAD; U/S BREAST UNILAT LIMITED COMPLETED DATE/TIME: 10/13/2018 12:55 pm; 10/13/2018 1:31 pm REASON FOR STUDY: N63.20 UNSPECIFIED LUMP IN THE LEFT BREAST, UNSPECIFIED QUADRANT; LEFT BREAST LUMP N63.20 N63.20 UNSPECIFIED LUMP IN THE LEFT BREAST, UNSPECIFIED QUAD COMPARISON: None. TECHNIQUE: Standard craniocaudal and mediolateral oblique views of the right and left male breast re corded using digital acquisition. Additional bilateral 90 mediolateral mammograms. Left male breast ultrasound was performed. LIMITATIONS: None. FINDINGS: RIGHT BREAST MASSES: No suspicious masses. CALCIFICATIONS: No new or suspicious calcifications. ARCHITECTURAL DISTORTION: None. DEVELOPING DENSITY: None. ASYMMETRY: None noted. OTHER: No other significant findings. LEFT BREAST MASSES: No suspicious masses. CALCIFICATIONS: No new or suspicious calcifications. ARCHITECTURAL DISTORTION: None. DEVELOPING DENSITY: None. ASYMMETRY: None noted. OTHER: Mild gynecomastia. Read with the assistance of CAD: .[facility] - R2 [employer] Technician Version 9.2 Left male breast ultrasound: Patient presents with a palpable abnormality left breast laterally at 3 o'clock position. This is se en in the area indicated by the patient, a benign-appearing hypoechoic 6 x 5 mm lymph node is present . Normal cortical thickness. No worrisome features. In the left retroareolar region, there mild gy necomastia. In the right male breast, comparison ultrasound demonstrates no right-sided gynecomastia. No signifi cant focal findings. IMPRESSION: No mammographic/ sonographic evidence for malignancy bilaterally. Palpable abnormality left breast laterally correlates with a benign lymph node at sonography. BREAST DENSITY: a. The breasts are almost entirely fatty. BIRAD: 1 Negative. RECOMMENDATION: RECOMMENDED FOLLOW UP: Clinical follow-up recommended SPECIFIC INTERVENTION/IMAGING/CONSULTATION RECOMMENDED:No additional intervention/ imaging/consultati on needed at this time. COMMUNICATION:Patient notified by letter COMMENT: The patient has been notified of the results by letter per MQSA requirements. Additional no tification policies are in place for contacting patient with suspicious or incomplete findings. Quality ID #225: The [employer] recommends an annual screening mammogram for women aged 40 years or over. This facility utilizes a reminder system to ensure that all patients receive reminder letters, and/or direct phone calls for appointments. This includes reminders for routine scr eening mammograms, diagnostic mammograms, or other Breast Imaging Interventions when appropriate. Th is patient will be placed in the appropriate reminder system. The [employer] (ACR) has developed recommendations for screening MRI of the breast s in certain patient populations, to be used in conjunction with mammography. Breast MRI surveillanc e may be appropriate for women with more than 20% lifetime risk of developing breast cancer as deter mined by genetic testing, significant family history of the disease, or history of mantle radiation f or Hodgkins Disease. ACR Practice Guidelines 2008. TECHNICAL DOCUMENTATION: FINDING NUMBER: (1) ASSESSMENT: (1) JOB ID: [id number] [employer]- All Rights Reserved Reading location - IP/workstation name: [id number]-[id number]
== END ==
LOC: WI 11:56
PROVIDERS: ATTEND Nurse Practitioner Family
DX: N63.20 Unspecified lump in the left breast, unspecified quadrant (principal)
CPT/HCPCS: 76642; 77066